=== PATIENT | female | born 1950 | race Caucasian/White ===

== ENCOUNTER 2017-07-30 11:39 | Observation (INO) ==
--- NOTE | 2017-07-30 14:25 | General Surg History&Physical ---
Date of Encounter: 07/30/17 Time of Encounter: 14:00 Assessment and Plan (1) Acute appendicitis Current Visit: No Status: Acute The assessment and plan as outlined above was discussed with the patient and/or family members who expressed understanding and agreement. All questions were answered. Nothing by mouth IV antibiotics- ciprofloxacin and Flagyl IV fluids Supportive care and pain control Incentive spirometer while awake PPI therapy daily Repeat a.m. labs Risks, benefits, alternatives, expected outcomes were reviewed with the patient and she is in agreement to proceed to the operating room today with Dr. Vance for a laparoscopic appendectomy- consent has been complete Qualifiers: Acute appendicitis type: with localized peritonitis Qualified Code(s): K35.3 - Acute appendicitis with localized peritonitis (2) Hyperlipidemia Current Visit: Yes Status: Chronic The assessment and plan as outlined above was discussed with the patient and/or family members who expressed understanding and agreement. All questions were answered. Qualifiers: Hyperlipidemia type: unspecified Qualified Code(s): E78.5 - Hyperlipidemia , unspecified (3) Obstructive sleep apnea Current Visit: Yes Status: Chronic The assessment and plan as outlined above was discussed with the patient and/or family members who expressed understanding and agreement. All questions were answered. The patient states that she has never used CPAP for her sleep apnea due to inability to afford it (4) Hypothyroidism Current Visit: No Status: Chronic The assessment and plan as outlined above was discussed with the patient and/or family members who expressed understanding and agreement. All questions were answered. Resume home dose of levothyroxine Qualifiers: Hypothyroidism type: unspecified Qualified Code(s): E03.9 - Hypothyroidism , unspecified (5) DM type 2 (diabetes mellitus, type 2) Current Visit: No Status: Chronic The assessment and plan as outlined above was discussed with the patient and/or family members who expressed understanding and agreement. All questions were answered. Continue home diabetic regimen with insulin coverage We will continue to monitor and adjust as necessary Qualifiers: Diabetes mellitus complication status: without complication Diabetes mellitus prison insulin use: with prison use Qualified Code(s): E11.9 - Type 2 diabetes mellitus without complications; Z79.4 - FDC (current) use of insulin (6) Hypertension Current Visit: No Status: Chronic The assessment and plan as outlined above was discussed with the patient and/or family members who expressed understanding and agreement. All questions were answered. Continue home medication regimen We will continue to monitor and adjust as necessary Qualifiers: Hypertension type: essential hypertension Qualified Code(s): I10 - Essential (primary) hypertension (7) DVT prophylaxis Current Visit: Yes Status: Acute The assessment and plan as outlined above was discussed with the patient and/or family members who expressed understanding and agreement. All questions were answered. EPCDs to bilateral reduction is for DVT prophylaxis Ambulate hallways 3 times a day with assistants History of Present Illness Chief complaint: Abdominal pain HPI: Ms. Baron is a 66 year old female presented to the emergency department at [place] with complaints of abdominal pain. She states that she began having sharp and stabbing abdominal pain since 3 AM this morning. She states that these pains of been severe and constant. She states that any increase in activity aggravates the pain. Dilaudid given in the emergency department did ease her pain. She she states that she has been having intermittent crampy abdominal pain across her lower abdomen for the last 10 days. She states that the sudden on set of pain last night was severe compared to what she had been experiencing the last 10 days. She does report 3-4 episodes of nausea and vomiting. She denies any hematemesis or coffee-ground emesis. Denies any diarrhea or constipation. She admits to chills. She admits to bloating and states that it is difficult to take a deep breath. She denies any chest pains. She denies any difficulty with urination. She has had a CAT scan evaluation completed which shows findings consistent with acute appendicitis. The patient has been transferred to [facility] for further workup and treatment. Past Med Surg Social Fam HX - Past Medical History Source: patient Medical history: arthritis, asthma, COPD, CVA (left eye affected), diabetes ( Type 2), GERD, hyperlipidemia, hypertension, thyroid disease (hypothyroidism), other (POWER, ovarian cysts) Psychiatric history: anxiety, depression - Past Surgical History Surgical History: breast surgery (left breast excision (benign)), cholecystectomy, other (Colonoscopy with Dr. Gibbs (polypectomy); tonsillectomy) - Social History Smoking Status: Never smoker Smokeless Tobacco Status: No Alcohol use: none Drug use: none Current living situation: Home - Independent Activity Level: Independent ambulation - Family History Mother Living Status: Age at : 82 Cause of : tumor-cancer Hx Family Cancer: Yes Hx Family Medical Disorders: Yes (ETOH abuse) Father Living Status: Age at : 88 Cause of : neck injury s/p fall Hx Family Medical Disorders: Yes (ETOH abuse) Sister Living Status: Still Living Hx Family Autoimmune Disorders: Yes (Lupus) Daughter Living Status: Still Living Hx Family Psychosocial Disorders: Yes (Bipolar) Medications and Allergies Aspirin [Adult Low Dose Aspirin EC] 81 mg PO DAILY 12/05/15 [History] Insulin DETEMIR [Levemir Flextouch] 45 unit SQ BID 12/05/15 [History] Levothyroxine [Synthroid] 88 mcg PO 0630 12/05/15 [History] Metoprolol [Lopressor] 25 mg PO BID 11/03/16 [History] amLODIPine [Norvasc] 5 mg PO DAILY #0 11/03/16 [History] glipiZIDE [Glipizide] 10 mg PO DAILY 11/03/16 [History] Magnesium [Magnesium] 40 mg PO DAILY 01/31/17 [History] Vitamin E 1,000 unit PO DAILY 01/31/17 [History] Atorvastatin [Lipitor] 40 mg PO HS 07/30/17 [History] Cider Vinegar [Apple Cider Vinegar] 300 mg PO DAILY 07/30/17 [History] traZODone [TraZODone] 50 mg PO HS PRN 07/30/17 [History] 3 Allergy/AdvReac Type Severity Reaction Status Date / Time codeine Allergy Severe Difficulty Verified 01/31/17 10:35 Swallowing venom-honey bee Allergy Severe Anaphylaxis Verified 01/31/17 10:35 [bee venom (honey bee)] latex Allergy Mild Hives Verified 01/31/17 10:35 butorphanol [From Stadol] Allergy Hives Verified 12/05/15 22:52 yellow dye Allergy See Verified 07/30/17 08:47 Comments Diclofenac AdvReac Severe Gastrointestinal Verified 01/31/17 10:35 Upset lisinopril AdvReac Severe Cough Verified 01/31/17 10:35 Review of Systems All systems PM: reviewed and no additional remarkable complaints except as stated (in the HPI) All systems PM: A 10-system review of systems was performed and is negative for pertinent findings except as documented above in the HPI. General Surgery Exam - General physical appearance well developed, well nourished, no distress, moderate pain - Eyes PERRL, normal ocular movement - ENT normal mucosa, atraumatic, normocephalic - Neck trachea midline - Respiratory normal respiratory effort, clear to auscultation - Cardiovascular Cardiovascular exam: Present: RRR - Abdomen Abdomen general surgery: Present: bowel sounds present, soft, tender Abdominal Tenderness: Present: RLQ, suprapubic - Integumentary Integumentary general surgery: Present: warm and dry - Neurologic Present: CN 2-12 grossly intact - Psychiatric Psychiatric general surgery: Present: appropriate, oriented to person, oriented to place, oriented to time, speech is normal, memory intact Results - Labs All other labs normal. - Imaging CT scan - abdomen: report reviewed CT scan - pelvis: report reviewed - Attending Attestation For this encounter, I have reviewed the FELTING MACHINE OPERATOR or PA documentation, treatment plan, and medical decision making; and I have had face to face time with this patient.
[2017-07-30] MEDS ORDERED: MetroNIDAZOLE 500 MG/100 ML 500 MG/100 ML BAG IVPB ONE ×2 (14:27→14:54)
--- NOTE | 2017-07-30 15:04 | Anesthesia Evaluation PreOp ---
Date of Encounter: 07/30/17 Time of Encounter: 15:02 - Past History Planned Operation: Lap appy Cardiac History: HTN, Hyperlipidemia Pulmonary History: Denies Any Significant HX FIELD INSTRUCTOR History: Denies Any Significant HX Other Medical History: Hepatic (hx liver hematoma), Diabetes Type II (uses insulin) Anesthesia History: Problems (nausea after cholecystectomy) Alcohol Use: none Drug use: none Medications and Allergies Aspirin [Adult Low Dose Aspirin EC] 81 mg PO DAILY 12/05/15 [History] Insulin DETEMIR [Levemir Flextouch] 45 unit SQ BID 12/05/15 [History] Levothyroxine [Synthroid] 88 mcg PO 0630 12/05/15 [History] Metoprolol [Lopressor] 25 mg PO BID 11/03/16 [History] amLODIPine [Norvasc] 5 mg PO DAILY #0 11/03/16 [History] glipiZIDE [Glipizide] 10 mg PO DAILY 11/03/16 [History] Magnesium [Magnesium] 40 mg PO DAILY 01/31/17 [History] Vitamin E 1,000 unit PO DAILY 01/31/17 [History] Atorvastatin [Lipitor] 40 mg PO HS 07/30/17 [History] Cider Vinegar [Apple Cider Vinegar] 300 mg PO DAILY 07/30/17 [History] traZODone [TraZODone] 50 mg PO HS PRN 07/30/17 [History] 3 Allergy/AdvReac Type Severity Reaction Status Date / Time codeine Allergy Severe Difficulty Verified 01/31/17 10:35 Swallowing venom-honey bee Allergy Severe Anaphylaxis Verified 01/31/17 10:35 [bee venom (honey bee)] latex Allergy Mild Hives Verified 01/31/17 10:35 butorphanol [From Stadol] Allergy Hives Verified 12/05/15 22:52 yellow dye Allergy See Verified 07/30/17 08:47 Comments Diclofenac AdvReac Severe Gastrointestinal Verified 01/31/17 10:35 Upset lisinopril AdvReac Severe Cough Verified 01/31/17 10:35 - Meds/Allergy Pre-op Review Medications Reviewed: Yes Allergies Reviewed: Yes Beta Blockers on Current Med List: Yes Anesthesia Results - Imaging EKG: report reviewed, image reviewed (SINUS RHYTHM POSSIBLE INFERIOR MYOCARDIAL INFARCTION, PROBABLY OLD) Anesthesia Exam - HEENT Pupil (Motor): Pupils equal, EOMI Mallampati: II Teeth: Missing, Poor dentition Oral Opening: Greater than 3 - FIELD INSTRUCTOR LOC: Oriented FIELD INSTRUCTOR Motor: Normal RUE, Normal LUE, Normal RLE, Normal LLE, Normal Face - Cardiac Rhythm: Regular Murmur: None - Pulmonary Breath Sounds: bilateral Clear Respiratory Effort: Symmetrical Anesthesia Assess/Plan ASA Score: 3 Modified Bam Scale for Level of Consciousness: Cooperative, oriented, and tranquil Anesthetic Plan: General Monitoring Plan: Standard Monitors Recovery Plan: PACU
[2017-07-30] MEDS ORDERED: Naloxone 0.4 MG/ML INJ IVP PRN ×2 (15:22→18:20)
[2017-07-30] MEDS ORDERED: Dextrose Gel 15 GM PO PRN ×4 (15:22→18:20)
[2017-07-30] MEDS ORDERED: Ibuprofen 600 MG TABLET PO PRN ×2 (15:22→18:20)
[2017-07-30] MEDS ORDERED: *HR* Promethazine 25 MG/ML VIAL IVP PRN ×2 (15:22→18:20)
[2017-07-30] MEDS ORDERED: *HR* Metoprolol 5 MG/5 ML VIAL IVP PRN ×2 (15:22→18:20)
[2017-07-30] MEDS ORDERED: *HR* OxyCODONE/APAP 5/325 TABLET PO PRN ×2 (15:22→18:20)
[2017-07-30] MEDS ORDERED: Ondansetron 4 MG/2 ML VIAL IVP PRN ×2 (15:22→18:20)
[2017-07-30] MEDS ORDERED: *HR* HYDROmorphone (PF) 1 MG/ML SYRINGE IVP PRN ×2 (15:22→18:20)
[2017-07-30] MEDS ORDERED: *HR* Morphine 2 MG/ML SYRINGE IVP PRN ×2 (15:22→18:20)
[2017-07-30] MEDS ORDERED: Ketorolac 15 MG/ML VIAL IVP PRN ×2 (15:22→18:20)
[2017-07-30] MEDS ORDERED: *HR* Dextrose 50 % in Water (Syg) 50 ML SYRINGE IVP PRN ×2 (15:22→18:20)
[2017-07-30] MEDS ORDERED: D5% in Water 1,000 ML IVC PRN ×2 (15:22→18:20)
[2017-07-30] MEDS ORDERED: Lidocaine -MPF 2% 2 ML VIAL ONE (16:10)
[2017-07-30] MEDS ORDERED: Dexamethasone 4 MG/ML VIAL ONE (16:10)
[2017-07-30] MEDS ORDERED: Ondansetron 4 MG/2 ML VIAL ONE (16:10)
[2017-07-30] MEDS ORDERED: *HR* Succinylcholine 200 MG/10 ML VIAL IVP ONE (16:10)
[2017-07-30] MEDS ORDERED: *HR* Rocuronium Bromide 50 MG/5 ML VIAL ONE (16:10)
--- NOTE | 2017-07-30 16:21 | Discharge Summary ---
Date of Encounter: 07/30/17 Time of Encounter: 16:18 - Discharge Diagnosis (1) Acute appendicitis Priority: Primary Status: Resolved Qualifiers: Acute appendicitis type: with localized peritonitis Qualified Code(s): K35.3 - Acute appendicitis with localized peritonitis (2) Hyperlipidemia Priority: Secondary Status: Chronic Qualifiers: Hyperlipidemia type: unspecified Qualified Code(s): E78.5 - Hyperlipidemia , unspecified (3) Obstructive sleep apnea Priority: Secondary Status: Chronic (4) Hypothyroidism Priority: Secondary Status: Chronic Qualifiers: Hypothyroidism type: unspecified Qualified Code(s): E03.9 - Hypothyroidism , unspecified (5) DM type 2 (diabetes mellitus, type 2) Priority: Secondary Status: Chronic Qualifiers: Diabetes mellitus complication status: without complication Diabetes mellitus termite treater insulin use: with termite treater use Qualified Code(s): E11.9 - Type 2 diabetes mellitus without complications; Z79.4 - assisted (current) use of insulin (6) Hypertension Priority: Secondary Status: Chronic Qualifiers: Hypertension type: essential hypertension Qualified Code(s): I10 - Essential (primary) hypertension - Discharge Medications Prescriptions: OxyCODONE/APAP 5/325 [Percocet 5/325 MG] 1 each PO Q4HR PRN #26 tablet PRN Reason: Pain Docusate [Colace] 100 mg PO BID #30 capsule Home Medications: Aspirin [Adult Low Dose Aspirin EC] 81 mg PO DAILY 12/05/15 [History] Insulin DETEMIR [Levemir Flextouch] 45 unit SQ BID 12/05/15 [History] Levothyroxine [Synthroid] 88 mcg PO 0630 12/05/15 [History] Metoprolol [Lopressor] 25 mg PO BID 11/03/16 [History] amLODIPine [Norvasc] 5 mg PO DAILY #0 11/03/16 [History] glipiZIDE [Glipizide] 10 mg PO DAILY 11/03/16 [History] Magnesium 40 mg PO DAILY 01/31/17 [History] Vitamin E 1,000 unit PO DAILY 01/31/17 [History] Atorvastatin [Lipitor] 40 mg PO HS 07/30/17 [History] Cider Vinegar [Apple Cider Vinegar] 300 mg PO DAILY 07/30/17 [History] Docusate [Colace] 100 mg PO BID #30 capsule 07/30/17 [Rx] OxyCODONE/APAP 5/325 [Percocet 5/325 MG] 1 each PO Q4HR PRN #26 tablet 07/30/17 [Rx] traZODone [TraZODone] 50 mg PO HS PRN 07/30/17 [History] Allergies/Adverse Reactions: 3 Allergy/AdvReac Type Severity Reaction Status Date / Time codeine Allergy Severe Difficulty Verified 01/31/17 10:35 Swallowing venom-honey bee Allergy Severe Anaphylaxis Verified 01/31/17 10:35 [bee venom (honey bee)] latex Allergy Mild Hives Verified 01/31/17 10:35 butorphanol [From Stadol] Allergy Hives Verified 12/05/15 22:52 yellow dye Allergy See Verified 07/30/17 08:47 Comments Diclofenac AdvReac Severe Gastrointestinal Verified 01/31/17 10:35 Upset lisinopril AdvReac Severe Cough Verified 01/31/17 10:35 General Surgery Exam Initial Vital Signs Pulse Resp BP Pulse Ox 77 16 140/77 91 07/30/17 15:12 07/30/17 15:12 07/30/17 15:12 07/30/17 15:12 Date of admission: 07/30/17 13:42 Primary care physician: Gladis Landis CNP Discharging clinician: Reilly Harmon [facility]) Anticipated date of discharge: 07/30/17 - Patient Status Disposition: Home, Self-Care Condition: Good Functional capacity at discharge: independent ambulation Overall status at discharge: patient is progressing back to baseline - Discharge Instructions Follow Up With: Gladis Landis CNP [Primary Care Provider] - Prema Mas CNP [Advanced Practice Nurse] - 08/12/17 3:20 pm (surgery follow -up) Additional Instructions: #1 may shower 07/31/17, no tub bath for 2 weeks #2 wash incisions with soap and water and pat dry daily #3 no lifting, pushing, pulling more than 15 pounds for the next 2 weeks #4 no driving until off narcotics for 24 hours and able to safely react in the car #5 may climb stairs - Diet and Activity Activity: increase activity as tolerated Diet: advance to your usual diet - Hospital Course Hospital course: Ms. Baron is a 66 year old female presented to the hospital with acute onset of abdominal pain. She was found to have acute appendicitis and was started on IV antibiotics. She was taken to the operating room for laparoscopic appendectomy with Dr. Vance. Her operation was uncomplicated and she may discharged home when she meets discharge criteria including: Tolerating liquids without nausea vomiting, vital signs are stable and afebrile, pain is well- controlled, voiding and ambulate without difficulty. We will plan for outpatient follow-up in the next 10-14 days. - Time Spent with Patient Total time spent providing and/or coordinating discharge services: Less than 30 minutes - Attending Attestation For this encounter, I have reviewed the AUTOMATIC STACKER or PA documentation, treatment plan, and medical decision making; and I have had face to face time with this patient.
[2017-07-30] MEDS ORDERED: Insulin LISPRO 300 UNITS/3 ML VIAL SQ SCH ×3 (16:30→21:00)
[2017-07-30] MEDS ORDERED: 0.9 % Sodium Chloride 1,000 ML IVC SCH (16:30)
--- NOTE | 2017-07-30 17:09 | Anesthesia Evaluation Post Op ---
Date of Encounter: 07/30/17 Time of Encounter: 17:08 - Vital Signs Vital Signs: Last Vital Signs Temp 97.2 F L 07/30/17 17:00 Pulse 66 07/30/17 17:00 Resp 16 07/30/17 17:00 BP 143/85 07/30/17 17:00 Pulse Ox 96 07/30/17 17:00 - Lungs Lungs: Clear Ascult./Percussion - Airway Airway: Non-obstructed - Cardiovascular Regular Rate - Mental Status Mental Status: Alert & Oriented, Answers Appropriately - Pain Pain Scale: 2 - Nausea Vomiting Nausea Vomiting: Not Present - Hydration Hydration: Ice chips - Discharge PostOp Status: Transfer Patient to floor
[2017-07-30] MEDS ORDERED: Pantoprazole 40 MG VIAL IVP SCH (21:00)
[2017-07-30] MEDS ORDERED: Insulin DETEMIR 100 UNIT/ML X5UNITS SQ SCH (21:00)
[2017-07-30] MEDS: Pantoprazole 40 MG VIAL IVP SCH (22:31)
[2017-07-30] MEDS: 0.9 % Sodium Chloride 1,000 ML IVC SCH (22:37)
[2017-07-31] MEDS: 0.9 % Sodium Chloride 1,000 ML IVC SCH (06:48)
[2017-07-31] MEDS ORDERED: INSULIN DETEMIR 45 UNIT SQ SCH (08:00)
[2017-07-31] MEDS: Insulin LISPRO 300 UNITS/3 ML VIAL SQ SCH ×2 (08:44→11:41)
[2017-07-31] MEDS: Pantoprazole 40 MG VIAL IVP SCH (08:45)
[2017-07-31] MEDS ORDERED: Aspirin Enteric Coated 81 MG Tablet PO SCH ×2 (09:00)
[2017-07-31] MEDS ORDERED: amLODIPine 5 MG TABLET PO SCH ×2 (09:00)
[2017-07-31 10:54] VITALS: BP 135/74
--- NOTE | 2017-08-01 12:09 | Operative Note ---
Date of procedure: 08/01/17 Pre-op diagnosis: Appendicitis Post-op diagnosis: same Procedure: Laparoscopic Appendectomy Anesthesia: DWIGHT Surgeon: Reilly Vance Estimated blood loss (cc): 5 Specimen: appendix Condition: stable Disposition: same day Procedure in Detail: After informed consent, patient was taken to the operating room placed in supine position. After adequate sedation anesthesia the abdomen was prepped and draped. A 12 mm cannula was placed in the umbilicus. A 5 mm cannulas placed in suprapubic region and the left lower quadrant. Camera was inserted and the abdomen after a pneumoperitoneum. 2 Hola graspers were used to identify the base of the appendix. A appendiceal window was created. A ADDA endoscopic stapler was placed across the base. A vascular load was placed across the mesoappendix. Once the appendix was was placed in an Endobag and removed through the umbilicus. The right lower quadrant was suctioned dry no bleeding was identified. Remainder the pneumoperitoneum was evacuated. The umbilicus was closed with an 0 Vicryl suture in [id number] fashion. Skin was closed with 4-0 Vicryl suture and Dermabond.
== END 2017-07-31 12:18 | disposition home or self-care (01) ==
LOC: 3BNU
PROVIDERS: ADMIT Surgery; ATTEND Surgery